=== PATIENT | male | born 1995 ===

== ENCOUNTER 2017-07-04 13:26 | Emergency (ER) | payer OTHER ==
[2017-07-04 14:28] VITALS: BP 124/66
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
== END 2017-07-04 16:05 | disposition home or self-care (01) ==
LOC: UCCORT 13:26
DX: S80.211A Abrasion, right knee, initial encounter (principal); V19.9XXA Pedal cyclist (driver) (passenger) injured in unspecified traffic accident, initial encounter; Y93.55 Activity, bike riding; Y92.9 Unspecified place or not applicable
CPT/HCPCS: 99212; G0463